=== PATIENT | female | born 1970 | race Caucasian/White ===

== ENCOUNTER 2016-12-17 23:51 | Emergency (ER) | payer OTHER ==
--- NOTE | 2016-12-18 06:03 | DIAGNOSTIC IMAGING REPORT ---
PROCEDURE: XR CHEST 2 VIEW INDICATION: CHEST PAIN TECHNIQUE: Portable AP view (0045 hours). COMPARISON: None. FINDINGS: Allowing for overlying wires and electrodes, lungs are clear. Heart and mediastinum are normal. Thorax is normal. IMPRESSION: 1. Negative chest.
--- NOTE | 2016-12-18 08:19 | ED NURSING NOTES ---
Clinical Report - Nurses [facility] [address] [place] [address] 12/17/2016 23:51 Patient: ANSELMO MORA TRIAGE Triage time 2355. Acuity: LEVEL 2. Chief Complaint: CHEST PAIN. Alert. --00:02 Anu Rodriguez 00:00 12/18/16. BP: 153/89. HR: 114. RR: 18. O2 saturation: 97%. Temp: 100.9 F. --00:02 Anu Rodriguez. Weight: 97.5 kg. Height/Length: 67 inches. BMI: 33.7. --23:59 Anu Rodriguez. Medications Wellbutrin Oral. --00: Anu Rodriguez Lomotil Oral. --00: Anu Rodriguez Thyroid Hormone. --00:01 Anu Rodriguez. Allergies Sulfa Antibiotics. --08:34 Cindy Perez R.N. History Arrived by private vehicle. Historian: patient. This started today. ( Pt feels she is having a reaction to newly started med, nausea, feels hot, skin burning, now chest tightness and feels panicky). Treatment RECONCILIATION MANAGER: None. SOCIAL HX: Never smoker. Occasional alcohol use. History of drug use: marijuana. --00:02 Anu Rodriguez. PROBLEMS: Bipolar Disorder. Hypertension. Thyroid Disease. Depression. --00: Anu Rodriguez. ADDITIONAL SURGERIES: Hysterectomy. Oblation. Tonsillectomy. Tubal Ligation. --00:01 Anu Rodriguez. Interventions To treatment room. --00:02 Anu Rodriguez. PHYSICAL ASSESSMENT Ambulatory to room. GENERAL / NEURO / PSYCH: Alert. Oriented X 4. Appears anxious and in distress. HEENT: Mucous membranes are pink. RESPIRATORY: Respirations not labored. Chest nontender. Breath sounds within normal limits. CVS: Cardiac rhythm: sinus tachycardia. Heart sounds within normal limits. Pulses within normal limits. Capillary refill less than 2 seconds. GI / : The patient has had nausea. Abdomen soft and nontender. EXTREMITIES: No lower extremity edema. SKIN: Skin is warm and dry. Normal skin turgor. Skin is non-tender. --00:14 Anu Rodriguez. NURSING PROGRESS NOTES 00:15 12/18/2016 Site #1 started via IV in the right wrist with an 22g angiocath, with aseptic technique and good blood return; one attempt. Blood drawn: rainbow set. Labeled in the presence of the patient and sent to the lab. Saline lock flushed with 10 mL saline. --00:15 Anu Rodriguez Patient gowned. Head of bed elevated. Reassurance given. Call light placed in reach. Side rails up x 1. Bed placed in lowest position. Brakes of bed on. Patient ready for evaluation- chart flagged and ED physician notified. --00:15 Anu Rodriguez EKG time: (0011 AM). EKG was ordered, performed by a tech and shown to the ED physician. --00:17 Yareli Dumas Monitoring of patient in place. --00:32 Anu Rodriguez 01:09 12/18/2016 Ativan (LORazepam) IVP 0.5 mg given. via site #1. Allergies verified, confirmed 5 rights and sedative warning given to the patient. IV patency established. IV site checked: no pain, redness, or swelling. IV flushed thoroughly pre- and post-medication administration. IVP given by RN. --01:09 Anu Rodriguez :57 12/18/2016 Ativan (LORazepam) IVP 0.5 mg given. via site #1. Allergies verified, confirmed 5 rights and sedative warning given to the patient. IV patency established. IV site checked: no pain, redness, or swelling. IV flushed thoroughly pre- and post-medication administration. IVP given by RN. --:57 Anu Rodriguez :57 12/18/2016 Benadryl (DiphenhydrAMINE HCl) IVP 25 mg given. via site #1. Allergies verified, confirmed 5 rights and sedative warning given to the patient. IV patency established. IV site checked: no pain, redness, or swelling. IV flushed thoroughly pre- and post-medication administration. IVP given by RN. --01:57 Anu Rodriguez 02:54 12/18/16. BP: 138/85. HR: 110. RR: 20. O2 saturation: 98%. --02:55 Anu Rodriguez Reassessment after medication administered. She is calm, resting quietly and sleeping and has had no adverse reaction. Overall patient status is improved- she states feels the same. ( "I'm still burning"). --02:55 Anu Rodriguez The patient reports headache (pt reports "I'm starting to get a migraine".). --04:10 Denise Flores R.N. 04:44 12/18/2016 Started bag #1 1000 mL IV Fluids IV NS (Saline); bolus of 1000 mL wide open via site #1. Allergies verified and confirmed 5 rights. IV patency established. IV site checked: no pain, redness, or swelling. IV flushed thoroughly pre- and post-medication administration. --04:44 Anu Rodriguez 04:45 12/18/2016 Tylenol (Acetaminophen) PO 975 mg given. Allergies verified and confirmed 5 rights. --04:45 Anu Rodriguez 04:45 12/18/16. BP: 116/65 taken while lying. HR: 115. --04:46 Anu Rodriguez 04:48 12/18/16. BP: 131/77 taken while standing. HR: 120. --04:49 Anu Rodriguez 06:09 12/18/2016 IV Fluids IV NS Discontinued: bag #1 infused. Total amount infused: 1000 mL. IV patency established. IV site checked: no pain, redness, or swelling. IV flushed thoroughly. --06:09 Anu Rodriguez Reassessment after intervention and medication administered. She is resting quietly and has had no adverse reaction. Overall patient status is the same- she states feels the same. --06:09 Anu Rodriguez 06:08 12/18/16. BP: 123/73. HR: 115. RR: 20. O2 saturation: 97%. Temp: 99.7 F. Pain level now 05/27. --06:09 Anu Rodriguez 07:37 12/18/16. The patient is calm and resting quietly. --07:37 Cindy Perez R.N. 07:37 12/18/16. BP: 101/61. HR: 103. RR: 18. O2 saturation: 97% on room air. --07:37 Cindy Perez R.N. 08:28 12/18/2016 Site #1 removed upon discharge. Catheter intact. Manual pressure and bandage applied. --08:33 Cindy Perez R.N. DISPOSITION / DISCHARGE Departure time: 08:Dec 18 2016. Condition at departure: improved and stable. No learning barriers present. Discharge instructions provided and reviewed with the patient. Patient verbalized understanding. Written instructions provided in Japanese. The patient was discharged by the physician. She was discharged home and accompanied by chemistry manager. She left the Emergency Department ambulatory and via private vehicle. Terrestrial Ecologist driving. --08:32 Cindy Perez R.N. 08:31 12/18/16. BP: 120/66. HR: 98. RR: 20. O2 saturation: 100% on room air. Temp: 99.5 F (oral). --08:32 Cindy Perez R.N. Locked/Released at 12/18/2016 8:34 by Cindy Perez R.N.
--- NOTE | 2016-12-18 08:19 | ED ORDER SUMMARY ---
..... Patient: ANSELMO MORA OrderSheet Located Within [facility] VisitID: [id number] [place] [address] 46y, F Registration Date/Time: 12/17/2016 ORDER SHEET Weight: 97.5 kg Allergies: Sulfa Antibiotics GENERAL ORDERS: CBC w Diff Urgent (00:03 12/18/2016 EBonham per protocol) (Ack 0:15 CHategekimana) (7:10 MWinterer R.N.) CMP Urgent (00:03 12/18/2016 EBonham per protocol) (Ack 0:16 CHategekimana) (7:10 MWinterer R.N.) Cardiac Panel Stat (00:03 12/18/2016 EBonham per protocol) (Ack 0:16 CHategekimana) (7:10 MWinterer R.N.) TSH Urgent (00:03 12/18/2016 EBonham per protocol) (Ack 0:16 CHategekimana) (7:10 MWinterer R.N.) EKG - ER Stat (00:03 12/18/2016 EBonham per protocol) (Ack 0:16 CHategekimana) (0:16 CHategekimana) Chest 2V Urgent (00:34 12/18/2016 Sesar BOWIE) (Ack 0:38 CHategekimana) (0:48 GUnger) UA-Culture if indicated Urgent (00:35 12/18/2016 Sesar BOWIE) (Ack 0:38 Maríaegekimana) (1:09 EBonham) Urine Drug Screen Urgent (00:35 12/18/2016 Sesar BOWIE) (Ack 0:38 Maríaegekimana) (1:09 EBonham) Urine Urgent (00:35 12/18/2016 Sesar BOWIE) (Cancelled: Other0:35 Sesar BOWIE) Rapid Influenza Screen (Nasal Pharyngeal) (swab) Urgent (04:34 12/18/2016 Sesar BOWIE) (4:44 EBonham) Troponin-I Urgent (07:28 12/18/2016 Sesar BOWIE) (Ack 7:35 LMuller) ([facility] MEDICATION ORDERS: Tylenol PO 975 mg (NOW) (04:34 12/18/2016 Sesar BOWIE) (4:45 EBonham) - (orthostatic BP/P) (04:34 12/18/2016 Sesar BOWIE) (Cancelled: [facility]4:50 [facility] IV FLUIDS: Ativan IV 0.5 mg (NOW) (00:34 12/18/2016 Sesar BOWIE) (Ack 0:44 [facility] (1:09 EBonham) Ativan IV 0.5 mg (NOW) (01:43 12/18/2016 Sesar BOWIE) (1:57 [facility] Benadryl IV 25 mg (NOW) (01:44 12/18/2016 Sesar BOWIE) (1:57 [facility] IV NS : initial bolus 1000 mL (1000 mL/hr), then none - for X1 (NOW); Routine (04:33 12/18/2016 Sesar BOWIE) (4:44 [facility] ORDER SHEET NOTES: [Electronically signed by Cindy Perez R.N. (08:34 12/18/2016)] [Electronically signed by Ron Culver MD (20:09 12/19/2016)] [Electronically locked/signed by Cindy Perez R.N. (08:34 12/18/2016)]
--- NOTE | 2016-12-18 08:19 | ED ORDER SUMMARY ---
..... Patient: ANSELMO MORA OrderSheet [facility] VisitID: [id number] [place] [address] 46y, F Registration Date/Time: 12/17/2016 ORDER SHEET Weight: 97.5 kg Allergies: Sulfa Antibiotics GENERAL ORDERS: CBC w Diff Urgent (00:03 12/18/2016 EBonham per protocol) (Ack 0:15 CHategekimana) (7:10 MWinterer R.N.) CMP Urgent (00:03 12/18/2016 EBonham per protocol) (Ack 0:16 CHategekimana) (7:10 MWinterer R.N.) Cardiac Panel Stat (00:03 12/18/2016 EBonham per protocol) (Ack 0:16 CHategekimana) (7:10 MWinterer R.N.) TSH Urgent (00:03 12/18/2016 EBonham per protocol) (Ack 0:16 CHategekimana) (7:10 MWinterer R.N.) EKG - ER Stat (00:03 12/18/2016 EBonham per protocol) (Ack 0:16 CHategekimana) (0:16 CHategekimana) Chest 2V Urgent (00:34 12/18/2016 Sesar BOWIE) (Ack 0:38 CHategekimana) (0:48 GUnger) UA-Culture if indicated Urgent (00:35 12/18/2016 Sesar BOWIE) (Ack 0:38 Maríaegekimana) (1:09 EBonham) Urine Drug Screen Urgent (00:35 12/18/2016 Sesar BOWIE) (Ack 0:38 Maríaegekimana) (1:09 EBonham) Urine Urgent (00:35 12/18/2016 Sesar BOWIE) (Cancelled: Other0:35 Sesar BOWIE) Rapid Influenza Screen (Nasal Pharyngeal) (swab) Urgent (04:34 12/18/2016 Sesar BOWIE) (4:44 EBonham) Troponin-I Urgent (07:28 12/18/2016 Sesar BOWIE) (Ack 7:35 LMuller) (8:14 [facility] MEDICATION ORDERS: Tylenol PO 975 mg (NOW) (04:34 12/18/2016 Sesar BOWIE) (4:45 EBonham) - (orthostatic BP/P) (04:34 12/18/2016 Sesar BOWIE) (Cancelled: Other4:50 [facility] IV FLUIDS: Ativan IV 0.5 mg (NOW) (00:34 12/18/2016 Sesar BOWIE) (Ack 0:44 [facility] (1:09 EBonham) Ativan IV 0.5 mg (NOW) (01:43 12/18/2016 Sesar BOWIE) (1:57 [facility] Benadryl IV 25 mg (NOW) (01:44 12/18/2016 Sesar BOWIE) (1:57 [facility] IV NS : initial bolus 1000 mL (1000 mL/hr), then none - for X1 (NOW); Routine (04:33 12/18/2016 Sesar BOWIE) (4:44 [facility] ORDER SHEET NOTES: [Electronically signed by Cindy Perez R.N. (08:34 12/18/2016)] [Electronically signed by Ron Culver MD (20:09 12/19/2016)] [Electronically locked/signed by Cindy Perez R.N. (08:34 12/18/2016)]
--- NOTE | 2016-12-18 08:19 | ED NURSING NOTES ---
Clinical Report - Nurses [facility] [address] [place] [address] 12/17/2016 23:51 Patient: ANSELMO MORA TRIAGE Triage time 2355. Acuity: LEVEL 2. Chief Complaint: CHEST PAIN. Alert. --00:02 Anu Rodriguez 00:00 12/18/16. BP: 153/89. HR: 114. RR: 18. O2 saturation: 97%. Temp: 100.9 F. --00:02 Anu Rodriguez. Weight: 97.5 kg. Height/Length: 67 inches. BMI: 33.7. --23:59 Anu Rodriguez. Medications Wellbutrin Oral. --00: Anu Rodriguez Lomotil Oral. --00: Anu Rodriguez Thyroid Hormone. --00:01 Anu Rodriguez. Allergies Sulfa Antibiotics. --08:34 Cindy ePrez R.N. History Arrived by private vehicle. Historian: patient. This started today. ( Pt feels she is having a reaction to newly started med, nausea, feels hot, skin burning, now chest tightness and feels panicky). Treatment WALL STEAMER: None. SOCIAL HX: Never smoker. Occasional alcohol use. History of drug use: marijuana. --00:02 Anu Rodriguez. PROBLEMS: Bipolar Disorder. Hypertension. Thyroid Disease. Depression. --00: Anu Rodriguez. ADDITIONAL SURGERIES: Hysterectomy. Oblation. Tonsillectomy. Tubal Ligation. --00:01 Anu Rodriguez. Interventions To treatment room. --00:02 Anu Rodriguez. PHYSICAL ASSESSMENT Ambulatory to room. GENERAL / NEURO / PSYCH: Alert. Oriented X 4. Appears anxious and in distress. HEENT: Mucous membranes are pink. RESPIRATORY: Respirations not labored. Chest nontender. Breath sounds within normal limits. CVS: Cardiac rhythm: sinus tachycardia. Heart sounds within normal limits. Pulses within normal limits. Capillary refill less than 2 seconds. GI / : The patient has had nausea. Abdomen soft and nontender. EXTREMITIES: No lower extremity edema. SKIN: Skin is warm and dry. Normal skin turgor. Skin is non-tender. --00:14 Anu Rodriguez. NURSING PROGRESS NOTES 00:15 12/18/2016 Site #1 started via IV in the right wrist with an 22g angiocath, with aseptic technique and good blood return; one attempt. Blood drawn: rainbow set. Labeled in the presence of the patient and sent to the lab. Saline lock flushed with 10 mL saline. --00:15 Anu Rodriguez Patient gowned. Head of bed elevated. Reassurance given. Call light placed in reach. Side rails up x 1. Bed placed in lowest position. Brakes of bed on. Patient ready for evaluation- chart flagged and ED physician notified. --00:15 Anu Rodriguez EKG time: (0011 AM). EKG was ordered, performed by a tech and shown to the ED physician. --00:17 Yareli Dumas Monitoring of patient in place. --00:32 Anu Rodriguez 01:09 12/18/2016 Ativan (LORazepam) IVP 0.5 mg given. via site #1. Allergies verified, confirmed 5 rights and sedative warning given to the patient. IV patency established. IV site checked: no pain, redness, or swelling. IV flushed thoroughly pre- and post-medication administration. IVP given by RN. --01:09 Anu Rodriguez :57 12/18/2016 Ativan (LORazepam) IVP 0.5 mg given. via site #1. Allergies verified, confirmed 5 rights and sedative warning given to the patient. IV patency established. IV site checked: no pain, redness, or swelling. IV flushed thoroughly pre- and post-medication administration. IVP given by RN. --:57 Anu Rodriguez :57 12/18/2016 Benadryl (DiphenhydrAMINE HCl) IVP 25 mg given. via site #1. Allergies verified, confirmed 5 rights and sedative warning given to the patient. IV patency established. IV site checked: no pain, redness, or swelling. IV flushed thoroughly pre- and post-medication administration. IVP given by RN. --01:57 Anu Rodriguez 02:54 12/18/16. BP: 138/85. HR: 110. RR: 20. O2 saturation: 98%. --02:55 Anu Rodriguez Reassessment after medication administered. She is calm, resting quietly and sleeping and has had no adverse reaction. Overall patient status is improved- she states feels the same. ( "I'm still burning"). --02:55 Anu Rodriguez The patient reports headache (pt reports "I'm starting to get a migraine".). --04:10 Denise Flores R.N. 04:44 12/18/2016 Started bag #1 1000 mL IV Fluids IV NS (Saline); bolus of 1000 mL wide open via site #1. Allergies verified and confirmed 5 rights. IV patency established. IV site checked: no pain, redness, or swelling. IV flushed thoroughly pre- and post-medication administration. --04:44 Anu Rodriguez 04:45 12/18/2016 Tylenol (Acetaminophen) PO 975 mg given. Allergies verified and confirmed 5 rights. --04:45 Anu Rodriguez 04:45 12/18/16. BP: 116/65 taken while lying. HR: 115. --04:46 Anu Rodriguez 04:48 12/18/16. BP: 131/77 taken while standing. HR: 120. --04:49 Anu Rodriguez 06:09 12/18/2016 IV Fluids IV NS Discontinued: bag #1 infused. Total amount infused: 1000 mL. IV patency established. IV site checked: no pain, redness, or swelling. IV flushed thoroughly. --06:09 Anu Rodriguez Reassessment after intervention and medication administered. She is resting quietly and has had no adverse reaction. Overall patient status is the same- she states feels the same. --06:09 Anu Rodriguez 06:08 12/18/16. BP: 123/73. HR: 115. RR: 20. O2 saturation: 97%. Temp: 99.7 F. Pain level now 05/27. --06:09 Anu Rodriguez 07:37 12/18/16. The patient is calm and resting quietly. --07:37 Cindy Perez R.N. 07:37 12/18/16. BP: 101/61. HR: 103. RR: 18. O2 saturation: 97% on room air. --07:37 Cindy Perez R.N. 08:28 12/18/2016 Site #1 removed upon discharge. Catheter intact. Manual pressure and bandage applied. --08:33 Cindy Perez R.N. DISPOSITION / DISCHARGE Departure time: 08:Dec 18 2016. Condition at departure: improved and stable. No learning barriers present. Discharge instructions provided and reviewed with the patient. Patient verbalized understanding. Written instructions provided in Armenian. The patient was discharged by the physician. She was discharged home and accompanied by back shoe cutter. She left the Emergency Department ambulatory and via private vehicle. Keyboard Operator driving. --08:32 Cindy Perez R.N. 08:31 12/18/16. BP: 120/66. HR: 98. RR: 20. O2 saturation: 100% on room air. Temp: 99.5 F (oral). --08:32 Cindy Perez R.N. Locked/Released at 12/18/2016 8:34 by Cindy Perez R.N.
--- NOTE | 2016-12-18 08:19 | ED CLINICAL REPORT ---
Clinical Report - Physicians/Mid Levels [facility] [address] [place] [address] 12/17/2016 23:51 Patient: ANSELMO MORA Time Seen: 00:02 Dec 18 2016. Arrived- By private vehicle. Historian- patient. CPT: ER phys charges level 4 plus (#[id number]). EKG interpretation (#[id number]). HISTORY OF PRESENT ILLNESS Chief Complaint: CHEST PAIN. It is described as tightness and it is described as located in the central chest area. This started yesterday Pt feels she is having a reaction to newly started med, nausea, feels hot, skin burning, now chest tightness and feels panicky). and is still present. Onset during light activity. The patient has had nausea. No vomiting, difficulty breathing or diaphoresis. (Skin feels hot. NO pruritus.). (Just started lamotragine 2 weeks ago.). Similar symptoms previously: None. Recent medical care: Not recently seen/assessed. REVIEW OF SYSTEMS No fever, chills, cough, pedal edema or calf pain. No fainting episodes, sore throat, abdominal pain, black stools or difficulty with urination. No skin rash, enlarged lymph nodes or joint pain. Lips tingling. All systems otherwise negative, except as recorded above. PAST HISTORY Bipolar Disorder. Hypertension. Thyroid Disease. Depression. Hysterectomy. Oblation. Tonsillectomy. Tubal Ligation. Medications: Thyroid Hormone. Lomotil Oral. Wellbutrin Oral. Allergies: Sulfa Antibiotics. SOCIAL HISTORY Never smoker. Occasional alcohol use. History of occasional drug use: marijuana. ADDITIONAL NOTES The nursing notes have been reviewed. PHYSICAL EXAM Vital Signs: 12/18/2016 00:00 BP: 153/89. HR: 114. RR: 18. O2 saturation: 97%. Temp: 100.9 F. Appearance: Alert. No acute distress. Eyes: Eyes normal inspection. ENT: Pharynx normal. Neck: Normal inspection. Neck supple. CVS: Normal heart rate and rhythm. Heart sounds normal. Pulses normal. Respiratory: No respiratory distress. Breath sounds normal. Chest nontender. No wheezes. Abdomen: Soft and nontender. Back: Normal external inspection. Skin: Skin warm. Normal skin color. No rash. Extremities: Extremities exhibit normal ROM. No lower extremity edema. Neuro: Oriented X 3. No motor deficit. No sensory deficit. LABS, X-RAYS, AND EKG EKG: Normal EKG. Chest X-ray: Normal Chest X-Ray. Laboratory Tests: UA-Culture if indicated: (DELICIA: 12/18/2016 01:08) ( [facility] 12/18/2016 01:21) Final results Test Result Flag Units (Reference) URINE COLOR YELLOW URINE APPEARANCE CLEAR URINE GLUCOSE NEGATIVE (NEGATIVE) URINE BILIRUBIN NEGATIVE (NEGATIVE) URINE KETONE TRACE (NEGATIVE) URINE SPECIFIC GRAVITY 1.025 (1.010-1.030) URINE PH 6.5 (5.0-8.0) URINE PROTEIN 1+ (NEGATIVE) URINE UROBILINOGEN 0.2 EU/dL (0.2-1.0) URINE NITRITE NEGATIVE (NEGATIVE) URINE BLOOD NEGATIVE (NEGATIVE) URINE LEUK ESTERASE NEGATIVE (NEGATIVE) URINE RBC 0-1 rbc/hpf (0-1) URINE WBC 0-1 wbc/hpf (0-1) URINE EPITHELIAL CELLS 1-3 EPI/hpf (0-5) URINE BACTERIA NONE SEEN (NONE SEEN) URINE COMMENT CULT NOT INDICATED 1+ AMORPHOUS1+ MUCUSURINE CULTURES ARE SET-UP BASED ON THE FOLLOWING CRITERIA:POSITIVE NITRITEPOSITIVE LEUKOCYTE ESTERASEGREATER THAN 10 WHITE BLOOD CELLSMODERATE (2+) OR GREATER BACTERIA CBC w Diff: (DELICIA: 12/18/2016 00:10) ( [facility] 12/18/2016 00:22) Final results Test Result Flag Units (Reference) WHITE BLOOD COUNT 3.9 L K/uL (4.5-11.5) RED BLOOD COUNT 4.29 M/uL (4.00-5.20) HEMOGLOBIN 12.8 gm/dL (12.0-16.0) HEMATOCRIT 37.7 % (36.0-46.0) MEAN CELL VOLUME 88 fL (80-100) MEAN CORPUSCULAR HGB 30 pg (26-34) MEAN CORPUSCULAR HGB CONC 34 g/dL (31-37) RED CELL DISTRIBUTION WIDTH 13.6 % (11.6-14.8) PLATELET COUNT 113 L K/uL (150-400) NEUTROPHIL % 84.2 H % (50-75) LYMPH % 10.7 L % (25-40) MONO % 3.1 % (3-14) EOSINOPHIL % 2.0 % (0-4) BASOPHIL % 0 % (0-2) Urine Drug Screen: (DELICIA: 12/18/2016 01:08) ( MsgRcvd 12/18/2016 01:33) Final results Test Result Flag Units (Reference) AMPHETAMINE/METHAMPHETAMINE NEGATIVE (NEGATIVE) BARBITURATE NEGATIVE (NEGATIVE) BENZODIAZEPINE NEGATIVE (NEGATIVE) CANNABINOID POSITIVE H (NEGATIVE) COCAINE NEGATIVE (NEGATIVE) ECSTASY POSITIVE H (NEGATIVE) METHADONE NEGATIVE (NEGATIVE) OPIATE NEGATIVE (NEGATIVE) The urine drug screen is a qualitative screening test fordrug overdose and abuse. All screen results should beconsidered as presumptive.Drugs screened for are as follows:BenzodiazepinesCocaineAmphetamines/MetamphetaminesTHC (Tetrahydrocannabinol)OpiatesBarbituratesEcstasyMethadonePositive results are unconfirmed. For confirmation, notifythe lab for the specimen to be sent to the reference lab.All confirmations must be performed by a differentmethodology.The ingestion of natural herbal and plant productscontaining Ephedra/Ephedra metabolites can produce in urineone or more substances capable of cross reacting withamphetamine/methamphetamine immunoassays. These testsprovide a preliminary result only. A more specificalternative chemical method must be used to obtain aconfirmed analytical result. CHEM 13 PANEL: (DELICIA: 12/18/2016 00:10) ( MsgRcvd 12/18/2016 00:40) Final results Test Result Flag Units (Reference) GLUCOSE 116 H mg/dL (70-110) BUN 10 mg/dL (7-18) CREATININE 0.8 mg/dL (0.6-1.3) Estimated GFR >60 mL/min Estimated GFR- >60 mL/min Note: Persistent reduction over 3 months in eGFR<60 mL/min/1.73 m2 defines CKD. Patients with eGFR values>=60 mL/min/1.73 m2 may also have CKD if evidence ofpersistent proteinuria. Additional information may be foundat www.kidney.org. SODIUM 141 mmol/L (136-145) POTASSIUM 3.6 mmol/L (3.5-5.1) CHLORIDE 106 mmol/L (98-107) CARBON DIOXIDE 25 mmol/L (21-32) CALCIUM 8.0 L mg/dL (8.5-10.1) TOTAL PROTEIN 6.9 g/dL (6.4-8.2) ALBUMIN 3.3 g/dL (3.3-5.0) BILIRUBIN, TOTAL 0.4 mg/dL (0.0-1.0) ALKALINE PHOSPHATASE 77 U/L (46-116) AST (SGOT) 121 H U/L (15-37) ALT (SGPT) 75 U/L (12-78) CPK 54 U/L (24-260) MAGNESIUM 1.8 mg/dL (1.8-2.4) TROPONIN I <0.05 L ng/mL (0.00-1.5) TROPONIN REFERENCE RANGE:<0.1 NEGATIVE0.1-1.5 INDETERMINANT>1.5 POSITIVE THYROID STIMULATING HORMONE 0.376 uIU/mL (0.34-3.74) . PROGRESS AND PROCEDURES Course of Care: Ativan 0.5 mg IV 01:44 12/18/16. not much change in symptoms after the first dose of Ativan. We'll try 0.5 mg Ativan IV and benadryl 25 mg IV. Patient is stable. Pt with low grade fever of unclear etiology. Pt given IV NS. Patient/family counseled. Disposition: Discharged. Condition: stable. CLINICAL IMPRESSION Side effects to lamotrigine Low grade fever Mild dehydration. Sinus tachycardia. INSTRUCTIONS Do not work today, for one day until better. (Call Doctor today to discuss lamotrigine). Warnings: Further evaluation is necessary. GENERAL WARNINGS: Return or contact your physician immediately if your condition worsens or changes unexpectedly, if not improving as expected, or if other problems arise. Your Current Medications: CONTINUE TAKING THE FOLLOWING MEDICATIONS: Lomotil Oral. Thyroid Hormone*. Wellbutrin Oral. Follow-up: Follow up with your doctor in two days. Call for an appointment. Understanding of the discharge instructions verbalized by patient. (Electronically signed by Ron Culver MD 12/19/2016 20:09)
--- NOTE | 2016-12-19 20:10 | ED DISCHARGE INSTRUCTIONS ---
Patient: ANSELMO MORA General Instructions [facility] VisitID: [id number] [address] [place] [address] 46y, F Registration Date/Time: 12/17/2016 Side effects to lamotrigine Low grade fever Mild dehydration. Sinus tachycardia. INSTRUCTIONS Do not work today, for one day until better. (Call Doctor today to discuss lamotrigine). Warnings: Further evaluation is necessary. GENERAL WARNINGS: Return or contact your physician immediately if your condition worsens or changes unexpectedly, if not improving as expected, or if other problems arise. Your Current Medications: CONTINUE TAKING THE FOLLOWING MEDICATIONS: Lomotil Oral. Thyroid Hormone*. Wellbutrin Oral. Follow-up: Follow up with your doctor in two days. Call for an appointment. Understanding of the discharge instructions verbalized by patient. Do not work today, for one day until better. (Electronically signed by Ron Culver MD 12/19/2016 20:09)
--- NOTE | 2016-12-19 20:10 | ED MED RECONCILIATION SUMMARY ---
Patient: ANSELMO MORA Medication Reconciliation Report [facility] VisitID: [id number] [address] [place] [address] 46y, F Registration Date/Time: 12/17/2016 Weight: 97.5 kg Height/Length: 67 in. BMI: 33.7 ALLERGIES: Sulfa Antibiotics The patient's Home Medications are listed below: CONTINUE TAKING THE FOLLOWING MEDICATIONS: Lomotil Oral Thyroid Hormone Wellbutrin Oral The source(s) of the original Home Medication information: Not obtained. The following Medications were given to the patient in the Emergency Department: Ativan [IVP] IVP 0.5 mg, administered: 12/18/2016 1:09:00 AM Ativan [IVP] IVP 0.5 mg, administered: 12/18/2016 1:57:00 AM Benadryl [IVP] IVP 25 mg, administered: 12/18/2016 1:57:00 AM IV NS IV Fluids bolus 1000 mL wide open, administered: 12/18/2016 4:44:00 AM Tylenol [PO] PO 975 mg, administered: 12/18/2016 4:45:00 AM The following Medications were prescribed to the patient: None.
--- NOTE | 2016-12-19 20:10 | ED MED RECONCILIATION SUMMARY ---
Patient: ANSELMO MORA Medication Reconciliation Report [facility] VisitID: [id number] [address] [place] [address] 46y, F Registration Date/Time: 12/17/2016 Weight: 97.5 kg Height/Length: 67 in. BMI: 33.7 ALLERGIES: Sulfa Antibiotics The patient's Home Medications are listed below: CONTINUE TAKING THE FOLLOWING MEDICATIONS: Lomotil Oral Thyroid Hormone Wellbutrin Oral The source(s) of the original Home Medication information: Not obtained. The following Medications were given to the patient in the Emergency Department: Ativan [IVP] IVP 0.5 mg, administered: 12/18/2016 1:09:00 AM Ativan [IVP] IVP 0.5 mg, administered: 12/18/2016 1:57:00 AM Benadryl [IVP] IVP 25 mg, administered: 12/18/2016 1:57:00 AM IV NS IV Fluids bolus 1000 mL wide open, administered: 12/18/2016 4:44:00 AM Tylenol [PO] PO 975 mg, administered: 12/18/2016 4:45:00 AM The following Medications were prescribed to the patient: None.
--- NOTE | 2016-12-19 20:10 | ED MAR SUMMARY ---
..... Medication Administration Record [facility] [address] [place] [place] [address] Patient: ANSELMO MORA Visit ID: [id number] 46y, F Weight: 97.5 kg Height/Length: 67 in BMI: 33.7 ALLERGIES: Sulfa Antibiotics Given 01:09 12/18/2016 Anu Rodriguez, Medication Administered: ATIVAN [IVP] (LORAZEPAM), Dose: 0.5 mg IVP, Site: #1 right wrist. Medication Ordered: Ativan IV 0.5 mg (NOW). Given 01:57 12/18/2016 Anu Rodriguez, Medication Administered: ATIVAN [IVP] (LORAZEPAM), Dose: 0.5 mg IVP, Site: #1 right wrist. Medication Ordered: Ativan IV 0.5 mg (NOW). Given 01:57 12/18/2016 Anu Rodriguez, Medication Administered: BENADRYL [IVP] (DIPHENHYDRAMINE HCL), Dose: 25 mg IVP, Site: #1 right wrist. Medication Ordered: Benadryl IV 25 mg (NOW). Start 04:44 12/18/2016 Anu Rodriguez,, Stop 06:09 12/18/2016 Anu Rodriguez, Medication Administered: IV NS (SALINE), Dose: IV Fluids, Bolus: 1000 mL wide open, Dispensed: 1000 mL bag, Site: #1 right wrist. Medication Ordered: IV NS : initial bolus 1000 mL (1000 mL/hr), then none - for X1 (NOW); Routine. Given 04:45 12/18/2016 Anu Rodriguez, Medication Administered: TYLENOL [PO] (ACETAMINOPHEN), Dose: 975 mg PO. Medication Ordered: Tylenol PO 975 mg (NOW).
--- NOTE | 2016-12-19 20:10 | ED MAR SUMMARY ---
..... Medication Administration Record [facility] [address] [place] [place] [address] Patient: ANSELMO MORA Visit ID: [id number] 46y, F Weight: 97.5 kg Height/Length: 67 in BMI: 33.7 ALLERGIES: Sulfa Antibiotics Given 01:09 12/18/2016 Anu Rodriguez, Medication Administered: ATIVAN [IVP] (LORAZEPAM), Dose: 0.5 mg IVP, Site: #1 right wrist. Medication Ordered: Ativan IV 0.5 mg (NOW). Given 01:57 12/18/2016 Anu Rodriguez, Medication Administered: ATIVAN [IVP] (LORAZEPAM), Dose: 0.5 mg IVP, Site: #1 right wrist. Medication Ordered: Ativan IV 0.5 mg (NOW). Given 01:57 12/18/2016 Anu Rodriguez, Medication Administered: BENADRYL [IVP] (DIPHENHYDRAMINE HCL), Dose: 25 mg IVP, Site: #1 right wrist. Medication Ordered: Benadryl IV 25 mg (NOW). Start 04:44 12/18/2016 Anu Rodriguez,, Stop 06:09 12/18/2016 Anu Rodriguez, Medication Administered: IV NS (SALINE), Dose: IV Fluids, Bolus: 1000 mL wide open, Dispensed: 1000 mL bag, Site: #1 right wrist. Medication Ordered: IV NS : initial bolus 1000 mL (1000 mL/hr), then none - for X1 (NOW); Routine. Given 04:45 12/18/2016 Anu Rodriguez, Medication Administered: TYLENOL [PO] (ACETAMINOPHEN), Dose: 975 mg PO. Medication Ordered: Tylenol PO 975 mg (NOW).
--- NOTE | 2016-12-19 20:10 | ED DISCHARGE INSTRUCTIONS ---
Patient: ANSELMO MORA General Instructions [facility] VisitID: [id number] [address] [place] [address] 46y, F Registration Date/Time: 12/17/2016 Side effects to lamotrigine Low grade fever Mild dehydration. Sinus tachycardia. INSTRUCTIONS Do not work today, for one day until better. (Call Doctor today to discuss lamotrigine). Warnings: Further evaluation is necessary. GENERAL WARNINGS: Return or contact your physician immediately if your condition worsens or changes unexpectedly, if not improving as expected, or if other problems arise. Your Current Medications: CONTINUE TAKING THE FOLLOWING MEDICATIONS: Lomotil Oral. Thyroid Hormone*. Wellbutrin Oral. Follow-up: Follow up with your doctor in two days. Call for an appointment. Understanding of the discharge instructions verbalized by patient. Do not work today, for one day until better. (Electronically signed by Ron Culver MD 12/19/2016 20:09)
== END 2016-12-18 08:30 | disposition home or self-care (01) ==
LOC: ED SRH 23:51
DX: R00.0 Tachycardia, unspecified (principal); T42.6X5A Adverse effect of other antiepileptic and sedative-hypnotic drugs, initial encounter; E86.0 Dehydration; R50.9 Fever, unspecified; I10 Essential (primary) hypertension; E07.9 Disorder of thyroid, unspecified; Z88.2 Allergy status to sulfonamides; Z79.899 Other long term (current) drug therapy
CPT/HCPCS: 90004; 90074; 90100; 90616; 91400; 92610; 92720; 92760; 92761; 92762; 92763; 92764; 92765; 92766; 92767; 93140; 95059

== ENCOUNTER 2016-12-22 20:08 | Emergency (ER) | payer OTHER ==
--- NOTE | 2016-12-22 21:41 | ED NURSING NOTES ---
Clinical Report - Nurses [facility] [address] [place] [address] 12/22/2016 20:08 Patient: ANSELMO MORA TRIAGE Triage time 2014. Acuity: LEVEL 3. Chief Complaint: MIGRAINE HEADACHE and (has had since , was seen here and at [facility] at least 1x/day since then). --20:24 Raya Salgado R.N. 20:15 12/22/16. BP: 170/112. HR: 82. RR: 22. O2 saturation: 100%. Temp: 98.1 F. Pain level now: 08/27. --20:24 Raya Salgado R.N. Weight: 97.5 kg measured. Height/Length: 67 inches Measured. BMI: 33.7. --20:23 Raya Salgado R.N. Medications Lomotil Oral. Thyroid Hormone. Wellbutrin Oral. --20:21 Raya Salgado R.N. zofran 4mg last dose 1500. --20:22 Raya Salgado R.N. Allergies Sulfa Antibiotics. --20:21 Raya Salgado R.N. Lamictal.(rash) --20:21 Raya Salgado R.N. History Arrived by private vehicle. Historian: patient. Accompanied by family. No primary care physician. This started . She has had nausea and vomiting. SOCIAL HX: Never smoker. Occasional alcohol use. --20:24 Raya Salgado R.N. ( Intractable vomiting 2nd to migranes). --20:26 Raya Salgado R.N. PROBLEMS: Bipolar Disorder. Abdominal Injury. Chest Pain. Hypertension. Thyroid Disease. Depression. --20:23 Raya Salgado R.N. Migraine Headache [RuleOut]. --20:23 Raya Salgado R.N. ADDITIONAL SURGERIES: Hysterectomy. Oblation. Tonsillectomy. Tubal Ligation. --20:23 Raya Salgado R.N. Interventions ID band on patient. To treatment room. --20:24 Raya Salgado R.N. PHYSICAL ASSESSMENT 20:34 12/22/16. Ambulatory to room. GENERAL / NEURO / PSYCH: Alert. Oriented X 4. Speech within normal limits. HEENT: No facial asymmetry noted. Pupils equal, round and reactive to light. RESPIRATORY: Breath sounds within normal limits. CVS: Capillary refill less than 2 seconds. SKIN: Skin is warm and dry. --20:34 Anu Olivier R.N. NURSING PROGRESS NOTES 20:20 12/22/2016 Zofran ODT (Ondansetron) PO Oral Disintegrating Tablets 4 mg given. --20:25 Raya Salgado R.N. 20:25. Patient gowned. Head of bed elevated. Reassurance given. Lights dimmed. Patient identifiers checked. Call light placed in reach. Side rails up. Bed placed in lowest position. Patient ready for evaluation- chart flagged. Care transferred and report given (Zackary Leary, EDRN). --20:31 Raya Salgado R.N. 20:31 12/22/2016 Zofran ODT PO Response: (pt vomited less than 5 min after taking pill). --20:31 Raya Salgado R.N. 20:40 12/22/16. ( MD at bedside). --20:40 Anu Olivier R.N. 20:50 12/22/2016 Ativan (LORazepam) IM 1 mg given. Given in the right gluteus itz. Allergies verified, confirmed 5 rights and sedative warning given to the patient. --20:52 Anu Olivier R.N. 20:50 12/22/2016 Dilaudid (HYDROmorphone HCl PF) IM 1 mg given. Given in the right gluteus itz. Allergies verified, confirmed 5 rights and sedative warning given to the patient. --20:53 Anu Olivier R.N. 20:50 12/22/2016 Phenergan (Promethazine HCl) IM 25 mg given. Given in the right gluteus itz. Allergies verified, confirmed 5 rights and sedative warning given to the patient. --20:53 Anu Olivier R.N. 21:20 12/22/16. The patient has had no adverse reaction. Overall patient status is improved- she states feels better. GENERAL / NEURO / PSYCH: The patient reports headache is still present but improving. GI / : The patient reports nausea is still present but improving. --21:58 Anu Olivier R.N. 21:20 12/22/16. BP: 159/91. HR: 73. RR: 18. O2 saturation: 99%. Temp: 98.5 F. Pain level now 03/27. --21:58 Anu Olivier R.N. DISPOSITION / DISCHARGE 21:40 12/22/16. Departure time: 21:40 Dec 22 2016. Condition at departure: improved and stable. The goals identified in the patient's plan of care were met. No learning barriers present. Reviewed medication(s) side effects, precautions, dosing and course information. Prescription(s) given to the patient. Reviewed referral to a primary care physician for followup. Summary of care provided to patient. The patient was discharged home and accompanied by spouse. She left the Emergency Department ambulatory and via private vehicle. Spouse driving. --21:59 Anu Olivier R.N. 21:58 12/22/16. BP: 159/91. HR: 73. RR: 18. O2 saturation: 99%. Temp: 98.5 F. Pain level now 03/27. 20:15 12/22/16. BP: 170/112. HR: 82. RR: 22. O2 saturation: 100%. Temp: 98.1 F. Pain level now: 08/27. --21:59 Anu Olivier R.N. Locked/Released at 12/22/2016 22:00 by Anu Olivier R.N.
--- NOTE | 2016-12-22 21:41 | ED CLINICAL REPORT ---
Clinical Report - Physicians/Mid Levels [facility] [address] [place] [address] 12/22/2016 20:08 Patient: ANSELMO MORA Time Seen: 20:36 Dec 22 2016. Arrived- By private vehicle. Historian- patient. CPT: ER phys charges level 4 (#[id number]). HISTORY OF PRESENT ILLNESS Is still present. Chief Complaint: HEADACHE. This started about 1 weeks [employer] HEAD. Onset during light activity. It is described as "pain". Described as a global headache. At its maximum, severity described as moderate. When seen in the E.D., severity described as moderate. Modifying factors: (pt feels it is to the new lamictal she started over a week ago. She has been off it now for 5 days.). The patient has had nausea. She has had moderate vomiting (due to LI). The vomiting has occurred several times. No photophobia, numbness or weakness. Similar symptoms previously: None. Recent medical care: The patient was seen recently at another facility (Every day for the past 5 days.). Evaluation/treatment: head CT and medication prescribed- lumbar puncture. Diagnosis: headache. REVIEW OF SYSTEMS No fever, muscle aches, sinus pressure, ear pain or sore throat. No head injury, chest pain, difficulty breathing, cough or abdominal pain. No diarrhea, pain with urination, skin rash, enlarged lymph nodes or back pain. All systems otherwise negative, except as recorded above. PAST HISTORY Bipolar Disorder. Hypertension. Thyroid Disease. Depression. Hysterectomy. Oblation. Tonsillectomy. Tubal Ligation. Medications: zofran 4mg last dose 1500. Lomotil Oral. Thyroid Hormone. Wellbutrin Oral. Allergies: Lamictal.(rash) Sulfa Antibiotics. SOCIAL HISTORY Never smoker. Occasional alcohol use. No drug use. ADDITIONAL NOTES The nursing notes have been reviewed. PHYSICAL EXAM Vital Signs: 12/22/2016 20:15 BP: 170/112. HR: 82. RR: 22. O2 saturation: 100%. Temp: 98.1 F. Pain level now: 08/27. Appearance: Alert. Anxious. Patient in mild distress. Eyes: Pupils equal, round and reactive to light. Eyes normal inspection. ENT: Ears normal. Nose normal. Pharynx normal. Neck: Normal inspection. Neck supple. No meningeal signs. CVS: Normal heart rate and rhythm. Heart sounds normal. Pulses normal. Respiratory: No respiratory distress. Breath sounds normal. Abdomen: Soft and nontender. Back: Normal inspection. Skin: Skin warm. Normal skin color. No rash. Extremities: Extremities exhibit normal ROM. No lower extremity edema. Neuro: Oriented X 3. Alert. Mood/affect normal. Speech normal. Cranial nerves normal (as tested). No cerebellar findings. No motor deficit. No sensory deficit. Reflexes normal. PROGRESS AND PROCEDURES Course of Care: 20:54 12/22/16. patient has been in the ER or the office every day since last Saturday with headache. [place] to be a reaction to Lamictal. This was a new drug that was started the week prior. Patient was seen at the [facility] and had a LP CT of head and lab work. All of that was negative. Patient states she is given shots for the pain and then sent home but hasn't had any home medications for this headache. Zofran 4 mg po ODT Dilaudid 1 mg IM Ativan 1 mg IM Phenergan 25 mg IM Patient is stable. Symptoms better. Patient/family counseled. Disposition: Discharged. Condition: stable and improved. CLINICAL IMPRESSION Recurrent LI after lamictal medication change. INSTRUCTIONS Drink plenty of fluids. Warnings: Further evaluation is necessary. SEDATIVE MEDICATION: You were given sedative medication during your visit. Do not drive or operate dangerous machinery. GENERAL WARNINGS: Return or contact your physician immediately if your condition worsens or changes unexpectedly, if not improving as expected, or if other problems arise. Your Current Medications: CONTINUE TAKING THE FOLLOWING MEDICATIONS: Lomotil Oral. Thyroid Hormone*. Wellbutrin Oral. zofran 4mg last dose 1500*. Prescription Medications: Soma 350 mg: Take 1 orally every 6 hours as needed for muscle spasm. Dispense twenty (20). No refills. Substitution is permissible. Oxycodone/APAP 5 mg/325 mg: take 1-2 tablets orally every 6 hours. Dispense twelve (12). No refill. Phenergan suppositories 25 mg: Insert 1 rectally every 4 to 6 hours as needed for nausea or vomiting. Dispense ten (10). No refills. Substitution is permissible. Follow-up: Follow up with your doctor Saturday in two days. Call for the next available appointment. Understanding of the discharge instructions verbalized by patient and family. (Electronically signed by Ron Culver MD 12/26/2016 7:45)
--- NOTE | 2016-12-22 21:41 | ED CLINICAL REPORT ---
Clinical Report - Physicians/Mid Levels [facility] [address] [place] [address] 12/22/2016 20:08 Patient: ANSELMO MORA Time Seen: 20:36 Dec 22 2016. Arrived- By private vehicle. Historian- patient. CPT: ER phys charges level 4 (#[id number]). HISTORY OF PRESENT ILLNESS Is still present. Chief Complaint: HEADACHE. This started about 1 weeks [employer]. Onset during light activity. It is described as "pain". Described as a global headache. At its maximum, severity described as moderate. When seen in the E.D., severity described as moderate. Modifying factors: (pt feels it is to the new lamictal she started over a week ago. She has been off it now for 5 days.). The patient has had nausea. She has had moderate vomiting (due to LI). The vomiting has occurred several times. No photophobia, numbness or weakness. Similar symptoms previously: None. Recent medical care: The patient was seen recently at another facility (Every day for the past 5 days.). Evaluation/treatment: head CT and medication prescribed- lumbar puncture. Diagnosis: headache. REVIEW OF SYSTEMS No fever, muscle aches, sinus pressure, ear pain or sore throat. No head injury, chest pain, difficulty breathing, cough or abdominal pain. No diarrhea, pain with urination, skin rash, enlarged lymph nodes or back pain. All systems otherwise negative, except as recorded above. PAST HISTORY Bipolar Disorder. Hypertension. Thyroid Disease. Depression. Hysterectomy. Oblation. Tonsillectomy. Tubal Ligation. Medications: zofran 4mg last dose 1500. Lomotil Oral. Thyroid Hormone. Wellbutrin Oral. Allergies: Lamictal.(rash) Sulfa Antibiotics. SOCIAL HISTORY Never smoker. Occasional alcohol use. No drug use. ADDITIONAL NOTES The nursing notes have been reviewed. PHYSICAL EXAM Vital Signs: 12/22/2016 20:15 BP: 170/112. HR: 82. RR: 22. O2 saturation: 100%. Temp: 98.1 F. Pain level now: 08/27. Appearance: Alert. Anxious. Patient in mild distress. Eyes: Pupils equal, round and reactive to light. Eyes normal inspection. ENT: Ears normal. Nose normal. Pharynx normal. Neck: Normal inspection. Neck supple. No meningeal signs. CVS: Normal heart rate and rhythm. Heart sounds normal. Pulses normal. Respiratory: No respiratory distress. Breath sounds normal. Abdomen: Soft and nontender. Back: Normal inspection. Skin: Skin warm. Normal skin color. No rash. Extremities: Extremities exhibit normal ROM. No lower extremity edema. Neuro: Oriented X 3. Alert. Mood/affect normal. Speech normal. Cranial nerves normal (as tested). No cerebellar findings. No motor deficit. No sensory deficit. Reflexes normal. PROGRESS AND PROCEDURES Course of Care: 20:54 12/22/16. patient has been in the ER or the office every day since last Saturday with headache. [place] to be a reaction to Lamictal. This was a new drug that was started the week prior. Patient was seen at the [facility] and had a LP CT of head and lab work. All of that was negative. Patient states she is given shots for the pain and then sent home but hasn't had any home medications for this headache. Zofran 4 mg po ODT Dilaudid 1 mg IM Ativan 1 mg IM Phenergan 25 mg IM Patient is stable. Symptoms better. Patient/family counseled. Disposition: Discharged. Condition: stable and improved. CLINICAL IMPRESSION Recurrent LI after lamictal medication change. INSTRUCTIONS Drink plenty of fluids. Warnings: Further evaluation is necessary. SEDATIVE MEDICATION: You were given sedative medication during your visit. Do not drive or operate dangerous machinery. GENERAL WARNINGS: Return or contact your physician immediately if your condition worsens or changes unexpectedly, if not improving as expected, or if other problems arise. Your Current Medications: CONTINUE TAKING THE FOLLOWING MEDICATIONS: Lomotil Oral. Thyroid Hormone*. Wellbutrin Oral. zofran 4mg last dose 1500*. Prescription Medications: Soma 350 mg: Take 1 orally every 6 hours as needed for muscle spasm. Dispense twenty (20). No refills. Substitution is permissible. Oxycodone/APAP 5 mg/325 mg: take 1-2 tablets orally every 6 hours. Dispense twelve (12). No refill. Phenergan suppositories 25 mg: Insert 1 rectally every 4 to 6 hours as needed for nausea or vomiting. Dispense ten (10). No refills. Substitution is permissible. Follow-up: Follow up with your doctor Saturday in two days. Call for the next available appointment. Understanding of the discharge instructions verbalized by patient and family. (Electronically signed by Ron Culver MD 12/26/2016 7:45)
--- NOTE | 2016-12-22 21:41 | ED ORDER SUMMARY ---
..... Patient: ANSELMO MORA OrderSheet [facility] VisitID: [id number] [address] [place] [address] 46y, F Registration Date/Time: 12/22/2016 ORDER SHEET Weight: 97.5 kg (measured) Allergies: Sulfa Antibiotics, Lamictal GENERAL ORDERS: MEDICATION ORDERS: Zofran ODT PO 4 mg (NOW) (20:25 12/22/2016 DDean R.N. per protocol) (20:25 DDean R.N.) Ativan IM 1 mg (NOW) (20:45 12/22/2016 Sesar BOWIE) (20:52 EInderbitzen R.N.) Dilaudid IM 1 mg (NOW) (20:45 12/22/2016 Sesar BOWIE) (20:53 EInderbitzen R.N.) Phenergan IM 25 mg (NOW) (20:45 12/22/2016 Sesar BOWIE) (20:53 EInderbitzen R.N.) IV FLUIDS: ORDER SHEET NOTES: [Electronically signed by Anu Olivier R.N. (22:00 12/22/2016)] [Electronically signed by Ron Culver MD (07:45 12/26/2016)] [Electronically locked/signed by Anu Olivier R.N. (22:00 12/22/2016)]
--- NOTE | 2016-12-22 21:41 | ED ORDER SUMMARY ---
..... Patient: ANSELMO MORA OrderSheet [facility] VisitID: [id number] [address] [place] [address] 46y, F Registration Date/Time: 12/22/2016 ORDER SHEET Weight: 97.5 kg (measured) Allergies: Sulfa Antibiotics, Lamictal GENERAL ORDERS: MEDICATION ORDERS: Zofran ODT PO 4 mg (NOW) (20:25 12/22/2016 DDean R.N. per protocol) (20:25 DDean R.N.) Ativan IM 1 mg (NOW) (20:45 12/22/2016 Sesar BOWIE) (20:52 EInderbitzen R.N.) Dilaudid IM 1 mg (NOW) (20:45 12/22/2016 Sesar BOWIE) (20:53 EInderbitzen R.N.) Phenergan IM 25 mg (NOW) (20:45 12/22/2016 Sesar BOWIE) (20:53 EInderbitzen R.N.) IV FLUIDS: ORDER SHEET NOTES: [Electronically signed by Anu Olivier R.N. (22:00 12/22/2016)] [Electronically signed by Ron Culver MD (07:45 12/26/2016)] [Electronically locked/signed by Anu Olivier R.N. (22:00 12/22/2016)]
--- NOTE | 2016-12-26 07:46 | ED DISCHARGE INSTRUCTIONS ---
Patient: ANSELMO MORA General Instructions [facility] VisitID: [id number] [place] [address] 46y, F Registration Date/Time: 12/22/2016 Recurrent LI after lamictal medication change. INSTRUCTIONS Drink plenty of fluids. Warnings: Further evaluation is necessary. SEDATIVE MEDICATION: You were given sedative medication during your visit. Do not drive or operate dangerous machinery. GENERAL WARNINGS: Return or contact your physician immediately if your condition worsens or changes unexpectedly, if not improving as expected, or if other problems arise. Your Current Medications: CONTINUE TAKING THE FOLLOWING MEDICATIONS: Lomotil Oral. Thyroid Hormone*. Wellbutrin Oral. zofran 4mg last dose 1500*. Prescription Medications: Soma 350 mg: Take 1 orally every 6 hours as needed for muscle spasm. Dispense twenty (20). No refills. Substitution is permissible. Oxycodone/APAP 5 mg/325 mg: take 1-2 tablets orally every 6 hours. Dispense twelve (12). No refill. Phenergan suppositories 25 mg: Insert 1 rectally every 4 to 6 hours as needed for nausea or vomiting. Dispense ten (10). No refills. Substitution is permissible. Follow-up: Follow up with your doctor Saturday in two days. Call for the next available appointment. Understanding of the discharge instructions verbalized by patient and family. ADDITIONAL INFORMATION Oxycodone Hydrochloride, Acetaminophen Oral tablet What is this medicine? ACETAMINOPHEN; OXYCODONE (a set a SARAH norma fen; ox i KOE done) is a pain reliever. It is used to treat mild to moderate pain. How should I use this medicine? Take this medicine by mouth with a full glass of water. Follow the directions on the prescription label. Take your medicine at regular intervals. Do not take your medicine more often than directed. Talk to your manager forensic regarding the use of this medicine in children. Special care may be needed. Patients over 65 years old may have a stronger reaction and need a smaller dose. What side effects may I notice from receiving this medicine? Side effects that you should report to your doctor or health career services director as soon as possible: allergic reactions like skin rash, itching or hives, swelling of the face, lips, or tongue breathing difficulties, wheezing confusion light headedness or fainting spells severe stomach pain yellowing of the skin or the whites of the eyes Side effects that usually do not require medical attention (report to your doctor or health career services director if they continue or are bothersome): dizziness drowsiness nausea vomiting What may interact with this medicine? alcohol antihistamines barbiturates like amobarbital, butalbital, butabarbital, methohexital, pentobarbital, phenobarbital, thiopental, and secobarbital benztropine drugs for bladder problems like solifenacin, trospium, oxybutynin, tolterodine, hyoscyamine, and methscopolamine drugs for breathing problems like ipratropium and tiotropium drugs for certain stomach or intestine problems like propantheline, homatropine methylbromide, glycopyrrolate, atropine, belladonna, and dicyclomine general anesthetics like etomidate, ketamine, nitrous oxide, propofol, desflurane, enflurane, halothane, isoflurane, and sevoflurane medicines for depression, anxiety, or psychotic disturbances medicines for sleep muscle relaxants naltrexone narcotic medicines (opiates) for pain phenothiazines like perphenazine, thioridazine, chlorpromazine, mesoridazine, fluphenazine, prochlorperazine, promazine, and trifluoperazine scopolamine tramadol trihexyphenidyl What if I miss a dose? If you miss a dose, take it as soon as you can. If it is almost time for your next dose, take only that dose. Do not take double or extra doses. Where should I keep my medicine? Keep out of the reach of children. This medicine can be abused. Keep your medicine in a safe place to protect it from theft. Do not share this medicine with anyone. Selling or giving away this medicine is dangerous and against the law. Store at room temperature between 20 and 25 degrees C (68 and 77 degrees F). Keep container tightly closed. Protect from light. This medicine may cause accidental overdose and if it is taken by other adults, children, or pets. Flush any unused medicine down the toilet to reduce the chance of harm. Do not use the medicine after the expiration date. What should I tell my health care provider before I take this medicine? They need to know if you have any of these conditions: brain tumor Crohn's disease, inflammatory bowel disease, or ulcerative colitis drink more than 3 alcohol containing drinks per day drug abuse or addiction head injury heart or circulation problems kidney disease or problems going to the bathroom liver disease lung disease, asthma, or breathing problems an unusual or allergic reaction to acetaminophen, oxycodone, other opioid analgesics, other medicines, foods, dyes, or preservatives or trying to get breast-feeding What should I watch for while using this medicine? Tell your doctor or health career services director if your pain does not go away, if it gets worse, or if you have new or a different type of pain. You may develop tolerance to the medicine. Tolerance means that you will need a higher dose of the medication for pain relief. Tolerance is normal and is expected if you take this medicine for a long time. Do not suddenly stop taking your medicine because you may develop a severe reaction. Your body becomes used to the medicine. This does NOT mean you are addicted. Addiction is a behavior related to getting and using a drug for a non-medical reason. If you have pain, you have a medical reason to take pain medicine. Your doctor will tell you how much medicine to take. If your doctor wants you to stop the medicine, the dose will be slowly lowered over time to avoid any side effects. You may get drowsy or dizzy. Do not drive, use machinery, or do anything that needs mental alertness until you know how this medicine affects you. Do not stand or sit up quickly, especially if you are an older patient. This reduces the risk of dizzy or fainting spells. Alcohol may interfere with the effect of this medicine. Avoid alcoholic drinks. There are different types of narcotic medicines (opiates) for pain. If you take more than one type at the same time, you may have more side effects. Give your health care provider a list of all medicines you use. Your doctor will tell you how much medicine to take. Do not take more medicine than directed. Call emergency for help if you have problems breathing. The medicine will cause constipation. Try to have a bowel movement at least every 2 to 3 days. If you do not have a bowel movement for 3 days, call your doctor or health career services director. Do not take Tylenol (acetaminophen) or medicines that have acetaminophen with this medicine. Too much acetaminophen can be very dangerous. Many nonprescription medicines contain acetaminophen. Always read the labels carefully to avoid taking more acetaminophen. You have been given the following additional information: Oxycodone Hydrochloride, Acetaminophen Oral tablet (Electronically signed by Ron Culver MD 12/26/2016 7:45)
--- NOTE | 2016-12-26 07:46 | ED DISCHARGE INSTRUCTIONS ---
Patient: ANSELMO MORA General Instructions [facility] VisitID: [id number] [place] [address] 46y, F Registration Date/Time: 12/22/2016 Recurrent LI after lamictal medication change. INSTRUCTIONS Drink plenty of fluids. Warnings: Further evaluation is necessary. SEDATIVE MEDICATION: You were given sedative medication during your visit. Do not drive or operate dangerous machinery. GENERAL WARNINGS: Return or contact your physician immediately if your condition worsens or changes unexpectedly, if not improving as expected, or if other problems arise. Your Current Medications: CONTINUE TAKING THE FOLLOWING MEDICATIONS: Lomotil Oral. Thyroid Hormone*. Wellbutrin Oral. zofran 4mg last dose 1500*. Prescription Medications: Soma 350 mg: Take 1 orally every 6 hours as needed for muscle spasm. Dispense twenty (20). No refills. Substitution is permissible. Oxycodone/APAP 5 mg/325 mg: take 1-2 tablets orally every 6 hours. Dispense twelve (12). No refill. Phenergan suppositories 25 mg: Insert 1 rectally every 4 to 6 hours as needed for nausea or vomiting. Dispense ten (10). No refills. Substitution is permissible. Follow-up: Follow up with your doctor Saturday in two days. Call for the next available appointment. Understanding of the discharge instructions verbalized by patient and family. ADDITIONAL INFORMATION Oxycodone Hydrochloride, Acetaminophen Oral tablet What is this medicine? ACETAMINOPHEN; OXYCODONE (a set a SARAH norma fen; ox i KOE done) is a pain reliever. It is used to treat mild to moderate pain. How should I use this medicine? Take this medicine by mouth with a full glass of water. Follow the directions on the prescription label. Take your medicine at regular intervals. Do not take your medicine more often than directed. Talk to your freezer person regarding the use of this medicine in children. Special care may be needed. Patients over 65 years old may have a stronger reaction and need a smaller dose. What side effects may I notice from receiving this medicine? Side effects that you should report to your doctor or health care assistant as soon as possible: allergic reactions like skin rash, itching or hives, swelling of the face, lips, or tongue breathing difficulties, wheezing confusion light headedness or fainting spells severe stomach pain yellowing of the skin or the whites of the eyes Side effects that usually do not require medical attention (report to your doctor or health care assistant if they continue or are bothersome): dizziness drowsiness nausea vomiting What may interact with this medicine? alcohol antihistamines barbiturates like amobarbital, butalbital, butabarbital, methohexital, pentobarbital, phenobarbital, thiopental, and secobarbital benztropine drugs for bladder problems like solifenacin, trospium, oxybutynin, tolterodine, hyoscyamine, and methscopolamine drugs for breathing problems like ipratropium and tiotropium drugs for certain stomach or intestine problems like propantheline, homatropine methylbromide, glycopyrrolate, atropine, belladonna, and dicyclomine general anesthetics like etomidate, ketamine, nitrous oxide, propofol, desflurane, enflurane, halothane, isoflurane, and sevoflurane medicines for depression, anxiety, or psychotic disturbances medicines for sleep muscle relaxants naltrexone narcotic medicines (opiates) for pain phenothiazines like perphenazine, thioridazine, chlorpromazine, mesoridazine, fluphenazine, prochlorperazine, promazine, and trifluoperazine scopolamine tramadol trihexyphenidyl What if I miss a dose? If you miss a dose, take it as soon as you can. If it is almost time for your next dose, take only that dose. Do not take double or extra doses. Where should I keep my medicine? Keep out of the reach of children. This medicine can be abused. Keep your medicine in a safe place to protect it from theft. Do not share this medicine with anyone. Selling or giving away this medicine is dangerous and against the law. Store at room temperature between 20 and 25 degrees C (68 and 77 degrees F). Keep container tightly closed. Protect from light. This medicine may cause accidental overdose and if it is taken by other adults, children, or pets. Flush any unused medicine down the toilet to reduce the chance of harm. Do not use the medicine after the expiration date. What should I tell my health care provider before I take this medicine? They need to know if you have any of these conditions: brain tumor Crohn's disease, inflammatory bowel disease, or ulcerative colitis drink more than 3 alcohol containing drinks per day drug abuse or addiction head injury heart or circulation problems kidney disease or problems going to the bathroom liver disease lung disease, asthma, or breathing problems an unusual or allergic reaction to acetaminophen, oxycodone, other opioid analgesics, other medicines, foods, dyes, or preservatives or trying to get breast-feeding What should I watch for while using this medicine? Tell your doctor or health care assistant if your pain does not go away, if it gets worse, or if you have new or a different type of pain. You may develop tolerance to the medicine. Tolerance means that you will need a higher dose of the medication for pain relief. Tolerance is normal and is expected if you take this medicine for a long time. Do not suddenly stop taking your medicine because you may develop a severe reaction. Your body becomes used to the medicine. This does NOT mean you are addicted. Addiction is a behavior related to getting and using a drug for a non-medical reason. If you have pain, you have a medical reason to take pain medicine. Your doctor will tell you how much medicine to take. If your doctor wants you to stop the medicine, the dose will be slowly lowered over time to avoid any side effects. You may get drowsy or dizzy. Do not drive, use machinery, or do anything that needs mental alertness until you know how this medicine affects you. Do not stand or sit up quickly, especially if you are an older patient. This reduces the risk of dizzy or fainting spells. Alcohol may interfere with the effect of this medicine. Avoid alcoholic drinks. There are different types of narcotic medicines (opiates) for pain. If you take more than one type at the same time, you may have more side effects. Give your health care provider a list of all medicines you use. Your doctor will tell you how much medicine to take. Do not take more medicine than directed. Call emergency for help if you have problems breathing. The medicine will cause constipation. Try to have a bowel movement at least every 2 to 3 days. If you do not have a bowel movement for 3 days, call your doctor or health care assistant. Do not take Tylenol (acetaminophen) or medicines that have acetaminophen with this medicine. Too much acetaminophen can be very dangerous. Many nonprescription medicines contain acetaminophen. Always read the labels carefully to avoid taking more acetaminophen. You have been given the following additional information: Oxycodone Hydrochloride, Acetaminophen Oral tablet (Electronically signed by Ron Culver MD 12/26/2016 7:45)
--- NOTE | 2016-12-26 07:46 | ED MAR SUMMARY ---
..... Medication Administration Record [facility] [address] [place] [address] Patient: ANSELMO MORA Visit ID: [id number] 46y, F Weight: 97.5 kg Height/Length: 67 in BMI: 33.7 ALLERGIES: Lamictal, Sulfa Antibiotics Given 20:20 12/22/2016 Raya Salgado R.N. Medication Administered: ZOFRAN ODT [PO] (ONDANSETRON), Dose: 4 mg Oral Disintegrating Tablets PO. Medication Ordered: Zofran ODT PO 4 mg (NOW). Given 20:50 12/22/2016 Anu Olivier R.N. Medication Administered: ATIVAN [IM] (LORAZEPAM), Dose: 1 mg IM. Medication Ordered: Ativan IM 1 mg (NOW). Given 20:50 12/22/2016 Anu Olivier R.N. Medication Administered: DILAUDID [IM] (HYDROMORPHONE HCL PF), Dose: 1 mg IM. Medication Ordered: Dilaudid IM 1 mg (NOW). Given 20:50 12/22/2016 Anu Olivier R.N. Medication Administered: PHENERGAN [IM] (PROMETHAZINE HCL), Dose: 25 mg IM. Medication Ordered: Phenergan IM 25 mg (NOW).
--- NOTE | 2016-12-26 07:46 | ED MED RECONCILIATION SUMMARY ---
Patient: ANSELMO MORA Medication Reconciliation Report [facility] VisitID: [id number] [address] [place] [address] 46y, F Registration Date/Time: 12/22/2016 Weight: 97.5 kg Height/Length: 67 in. BMI: 33.7 ALLERGIES: Lamictal, Sulfa Antibiotics The patient's Home Medications are listed below: CONTINUE TAKING THE FOLLOWING MEDICATIONS: Lomotil Oral Thyroid Hormone Wellbutrin Oral zofran 4mg last dose 1500 The source(s) of the original Home Medication information: Not obtained. The following Medications were given to the patient in the Emergency Department: Zofran ODT [PO] PO 4 mg, administered: 12/22/2016 8:20:00 PM Ativan [IM] IM 1 mg, administered: 12/22/2016 8:50:00 PM Dilaudid [IM] IM 1 mg, administered: 12/22/2016 8:50:00 PM Phenergan [IM] IM 25 mg, administered: 12/22/2016 8:50:00 PM The following Medications were prescribed to the patient: Soma 350 mg: Take 1 orally every 6 hours as needed for muscle spasm. Dispense twenty (20). No refills. Substitution is permissible. -- Ron Culver MD Oxycodone/APAP 5 mg/325 mg: take 1-2 tablets orally every 6 hours. Dispense twelve (12). No refill. -- Ron Culver MD Phenergan suppositories 25 mg: Insert 1 rectally every 4 to 6 hours as needed for nausea or vomiting. Dispense ten (10). No refills. Substitution is permissible. -- Ron Culver MD
--- NOTE | 2016-12-26 07:46 | ED MED RECONCILIATION SUMMARY ---
Patient: ANSELMO MORA Medication Reconciliation Report [facility] VisitID: [id number] [address] [place] [address] 46y, F Registration Date/Time: 12/22/2016 Weight: 97.5 kg Height/Length: 67 in. BMI: 33.7 ALLERGIES: Lamictal, Sulfa Antibiotics The patient's Home Medications are listed below: CONTINUE TAKING THE FOLLOWING MEDICATIONS: Lomotil Oral Thyroid Hormone Wellbutrin Oral zofran 4mg last dose 1500 The source(s) of the original Home Medication information: Not obtained. The following Medications were given to the patient in the Emergency Department: Zofran ODT [PO] PO 4 mg, administered: 12/22/2016 8:20:00 PM Ativan [IM] IM 1 mg, administered: 12/22/2016 8:50:00 PM Dilaudid [IM] IM 1 mg, administered: 12/22/2016 8:50:00 PM Phenergan [IM] IM 25 mg, administered: 12/22/2016 8:50:00 PM The following Medications were prescribed to the patient: Soma 350 mg: Take 1 orally every 6 hours as needed for muscle spasm. Dispense twenty (20). No refills. Substitution is permissible. -- Ron Culver MD Oxycodone/APAP 5 mg/325 mg: take 1-2 tablets orally every 6 hours. Dispense twelve (12). No refill. -- Ron Culver MD Phenergan suppositories 25 mg: Insert 1 rectally every 4 to 6 hours as needed for nausea or vomiting. Dispense ten (10). No refills. Substitution is permissible. -- Ron Culver MD
--- NOTE | 2016-12-26 07:46 | ED MAR SUMMARY ---
..... Medication Administration Record [facility] [address] [address] Patient: ANSELMO MORA Visit ID: [id number] 46y, F Weight: 97.5 kg Height/Length: 67 in BMI: 33.7 ALLERGIES: Lamictal, Sulfa Antibiotics Given 20:20 12/22/2016 Raya Salgado R.N. Medication Administered: ZOFRAN ODT [PO] (ONDANSETRON), Dose: 4 mg Oral Disintegrating Tablets PO. Medication Ordered: Zofran ODT PO 4 mg (NOW). Given 20:50 12/22/2016 Anu Olivier R.N. Medication Administered: ATIVAN [IM] (LORAZEPAM), Dose: 1 mg IM. Medication Ordered: Ativan IM 1 mg (NOW). Given 20:50 12/22/2016 Anu Olivier R.N. Medication Administered: DILAUDID [IM] (HYDROMORPHONE HCL PF), Dose: 1 mg IM. Medication Ordered: Dilaudid IM 1 mg (NOW). Given 20:50 12/22/2016 Anu Olivier R.N. Medication Administered: PHENERGAN [IM] (PROMETHAZINE HCL), Dose: 25 mg IM. Medication Ordered: Phenergan IM 25 mg (NOW).
== END 2016-12-22 23:47 | disposition home or self-care (01) ==
LOC: ED SRH 20:08
DX: G44.011 Episodic cluster headache, intractable (principal); I10 Essential (primary) hypertension; E07.9 Disorder of thyroid, unspecified; Z88.2 Allergy status to sulfonamides; Z88.8 Allergy status to other drugs, medicaments and biological substances; Z79.899 Other long term (current) drug therapy

== ENCOUNTER → 2016-12-22 | Emergency (ER) | payer OTHER ==
--- NOTE | 2016-12-22 23:06 | ED CLINICAL REPORT ---
Clinical Report - Physicians/Mid Levels [facility] [address] [place] [address] 12/22/2016 22:34 Patient: ANSELMO MORA Time Seen: 22:46; upon arrival, initial patient contact, initial documentation, patient care assumed. Arrived- By private vehicle. Historian- patient and spouse. RETURN VISIT: recently seen in this ED by another ED physician. Seen now for the same problem as before. HISTORY OF PRESENT ILLNESS Chief Complaint: HEADACHE and MIGRAINE HEADACHE. This started about 10 days ago. It is described as similar to previous headaches and "pain". No neck pain. Not located in the facial region. At its maximum, severity described as severe. When seen in the E.D., severity described as severe. Modifying factors: worsened by bright light and general movement; relieved by nothing. The patient has had photophobia and nausea. She has had severe vomiting. The vomiting has occurred numerous times and has been bilious. No feculent emesis, blood-tinged emesis, coffee-grounds emesis, frankly bloody emesis or unusually dark emesis. No blurred vision, numbness or weakness. No recent travel. Similar symptoms previously: Chronically, as bad. Recent medical care: The patient was seen recently at this facility in the emergency department. ( pt has been to office, er every day since last for headache, lp done, labs done, all normal was discharged from here approx 1-2 hrs ago, on way home, started vomiting so came right back, rx not filled, nothing taken yet). REVIEW OF SYSTEMS No fever, sinus pressure or head injury. All systems otherwise negative, except as recorded above. PAST HISTORY See nurses notes. PROBLEMS: Bipolar Disorder. Abdominal Injury. Chest Pain. Hypertension. Thyroid Disease. Depression. --20:23 Raya Salgado R.N. Migraine Headache [RuleOut]. --20:23 Raya Salgado R.N. ADDITIONAL SURGERIES: Hysterectomy. Oblation. Tonsillectomy. Tubal Ligation. --20:23 Damian, Raya, R.N. SOCIAL HISTORY Never smoker. Occasional alcohol use. No drug use. No recent travel. Is a local resident. FAMILY HISTORY Negative. ADDITIONAL NOTES The nursing notes have been reviewed with agreement regarding the chief complaint, HPI, ROS, PMH and patient medications and allergies. PHYSICAL EXAM Vital Signs: 12/22/2016 22:40 BP: 175/115. HR: 86. RR: 18. O2 saturation: 100%. Temp: 98.3 F. Pain level now: 08/27. Have been reviewed as abnormal and appear to be correct. Hypertensive. Heart rate normal. Respiratory rate normal. Temperature normal. Oxygen saturation normal. Appearance: Alert. No acute distress. Eyes: Pupils equal, round and reactive to light. Eyes normal inspection. ENT: Ears normal. Nose normal. Pharynx normal. Neck: Normal inspection. Neck supple. CVS: Normal heart rate and rhythm. Heart sounds normal. Pulses normal. Respiratory: No respiratory distress. Breath sounds normal. Back: Normal inspection. Skin: Skin warm and dry. Normal skin color. No rash. Normal skin turgor. Extremities: Extremities exhibit normal ROM. No lower extremity edema. Neuro: Oriented X 3. Alert. Mood/affect normal. Speech normal. Cranial nerves normal (as tested). No cerebellar findings. No motor deficit. No sensory deficit. PROGRESS AND PROCEDURES Patient and spouse counseled in person regarding the patient's stable condition and diagnosis. 23:06. Differential Diagnosis: I considered migraine, cluster headache, ischemic stroke, subarachnoid hemorrhage, intracranial bleed, vascular malformation, cerebral aneurysm, vascular dissection, vasculitis, temporal arteritis, encephalitis, brain abscess, subdural empyema, influenza, viral syndrome, carbon monoxide exposure, analgesic abuse, hypoglycemia and trigeminal neuralgia as a possible cause of headache in this patient. This is a partial list of diagnoses considered. Above considerations are based on history and physical exam. Differential diagnosis was discussed with patient and patient's spouse. Disposition: Discharged home in good and improved condition (23:06). Condition: good and stable. CLINICAL IMPRESSION Episodic, poorly controlled cluster and periodic headache syndrome. INSTRUCTIONS (need to get prescriptions filled and take as directed and discussed). Warnings: GENERAL WARNINGS: Return or contact your physician immediately if your condition worsens or changes unexpectedly, if not improving as expected, or if other problems arise. SPECIFICALLY, return if you develop fever, vomiting, numbness, weakness, difficulty thinking, visual disturbances, fainting or extreme fatigue. Follow-up: Follow up with your doctor in about three days as needed. Call for an appointment. Summary of care provided to patient and family. Understanding of the discharge instructions verbalized by patient. (Electronically signed by Christen Anthony A.R.N.P. 12/23/2016 14:14)
--- NOTE | 2016-12-22 23:06 | ED NURSING NOTES ---
Clinical Report - Nurses [facility] [place] [address] [address] 12/22/2016 22:34 Patient: ANSELMO MORA TRIAGE Triage time 22:40 Dec 22 2016. Acuity: LEVEL 4. Chief Complaint: (nausea, headache). 22:30 12/22/16. --22:51 Anu Olivier R.N. 22:40 12/22/16. BP: 175/115. HR: 86. RR: 18. O2 saturation: 100%. Temp: 98.3 F. Pain level now: 08/27. --22:51 Anu Olivier R.N. Weight: 97.5 kg. Height/Length: 67 inches. BMI: 33.7. --22:39 Anu Olivier R.N. Medications Lomotil Oral. Thyroid Hormone. Wellbutrin Oral. zofran 4mg last dose 1500. --22:47 Anu Olivier R.N. Medication/allergy information source: the patient. --22:51 Anu Olivier R.N. Allergies Lamictal. --22:47 Anu Olivier R.N. Sulfa Antibiotics. --22:47 Anu Olivier R.N. History Arrived by private vehicle. Historian: patient. Accompanied by family. ( this has been ongoing problem for nearly 6 days. This is her 7th ED visit for same symptoms, 3rd visit today. She was just discharged here within last 2 hours. RX for percocet and phenergan were given. Pt did drop of RX at pharmacy but states couldnt wait for meds. Symtoms got worse. Patient is coughing, not vomiting.). No fever, weakness, cough, difficulty breathing or skin rash. Denies muscle aches. SOCIAL HX: Never smoker. Occasional alcohol use. No drug use. No infectious disease exposure. ABUSE ASSESSMENT: No report of abuse. SELF HARM ASSESSMENT: A self harm assessment was performed. The patient answered "no" to the question "Have you recently felt down, depressed, or hopeless?", "Have you noticed less interest or pleasure in doing things?", "Do you have thoughts of harming or killing yourself?", "Are you here because you tried to hurt yourself?", "Have you ever tried to hurt yourself before today?", "Have you recently had thoughts about harming or killing others?" and "Do you have any dangerous items in your possession?". --22:51 Anu Olivier R.N. ADDITIONAL SURGERIES: Hysterectomy. Oblation. Tonsillectomy. Tubal Ligation. --22:47 Anu Olivier R.N. Interventions ID band on patient. --22:51 Anu Olivier R.N. PHYSICAL ASSESSMENT 22:55 12/22/16. Ambulatory to room. GENERAL / NEURO / PSYCH: Alert. Oriented X 4. HEENT: Mucous membranes are pink. RESPIRATORY: Breath sounds within normal limits. CVS: Pulses within normal limits. GI / : Abdomen nontender. SKIN: Skin intact. Skin is warm and dry. Normal skin turgor. --23:16 Anu Olivier R.N. NURSING PROGRESS NOTES 22:45 12/22/16. The initial plan of care for this patient includes an assessment with efforts to address impairment of the gastrointestinal system. This plan of care was discussed with the patient. Portable chest x-ray. Patient identifiers checked. Call light placed in reach. Side rails up x 1. Bed placed in lowest position. Brakes of bed on. Patient ready for evaluation. --23:16 Aun Olivier R.N. 23:10 12/22/2016 Benadryl (DiphenhydrAMINE HCl) IM 50 mg given. Given in the right gluteus itz. Allergies verified, confirmed 5 rights and sedative warning given to the patient and patient's family. --23:14 Anu Olivier R.N. 23:10 12/22/2016 Reglan (Metoclopramide HCl) IM 10 mg given. Given in the left gluteus itz. Allergies verified and confirmed 5 rights. --23:14 Anu Olivier R.N. DISPOSITION / DISCHARGE 23:46 12/22/16. Departure time: 23:46 Dec 22 2016. Condition at departure: improved and stable. The goals identified in the patient's plan of care were met. No learning barriers present. Patient and spouse verbalized understanding. Written instructions provided in Chilean. The patient was discharged home and accompanied by spouse. She left the Emergency Department ambulatory and via private vehicle. Spouse driving. --23:47 Anu Olivier R.N. 23:46 12/22/16. BP: 176/80. HR: 80. RR: 16. O2 saturation: 100%. Temp: 98.5 F. Pain level now 0/10. --23:47 Anu Olivier R.N. Locked/Released at 12/22/2016 23:47 by Anu Olivier R.N.
--- NOTE | 2016-12-22 23:06 | ED ORDER SUMMARY ---
..... Patient: ANSELMO MORA OrderSheet [facility] VisitID: [id number] [address] [place] [address] 46y, F Registration Date/Time: 12/22/2016 ORDER SHEET Weight: 97.5 kg Allergies: Lamictal, Sulfa Antibiotics GENERAL ORDERS: MEDICATION ORDERS: Benadryl IM 50 mg (NOW) (23:01 12/22/2016 HBivens A.R.N.P.) (23:14 EInderbitzen R.N.) - (reglan 10mg im stat) (23:01 12/22/2016 HBivens A.R.N.P.) (23:14 EInderbitzen R.N.) IV FLUIDS: ORDER SHEET NOTES: [Electronically signed by Anu Olivier R.N. (23:47 12/22/2016)] [Electronically signed by Christen Anthony A.R.N.P. (14:14 12/23/2016)] [Electronically locked/signed by Anu Olivier R.N. (23:47 12/22/2016)]
--- NOTE | 2016-12-22 23:06 | ED ORDER SUMMARY ---
..... Patient: ANSELMO MORA OrderSheet [facility] VisitID: [id number] [address] [place] [address] 46y, F Registration Date/Time: 12/22/2016 ORDER SHEET Weight: 97.5 kg Allergies: Lamictal, Sulfa Antibiotics GENERAL ORDERS: MEDICATION ORDERS: Benadryl IM 50 mg (NOW) (23:01 12/22/2016 HBivens A.R.N.P.) (23:14 EInderbitzen R.N.) - (reglan 10mg im stat) (23:01 12/22/2016 HBivens A.R.N.P.) (23:14 EInderbitzen R.N.) IV FLUIDS: ORDER SHEET NOTES: [Electronically signed by Anu Olivier R.N. (23:47 12/22/2016)] [Electronically signed by Christen Anthony A.R.N.P. (14:14 12/23/2016)] [Electronically locked/signed by Anu Olivier R.N. (23:47 12/22/2016)]
--- NOTE | 2016-12-23 14:14 | ED DISCHARGE INSTRUCTIONS ---
Patient: ANSELMO MORA General Instructions [facility] VisitID: [id number] [place] [address] 46y, F Registration Date/Time: 12/22/2016 Episodic, poorly controlled cluster and periodic headache syndrome. INSTRUCTIONS (need to get prescriptions filled and take as directed and discussed). Warnings: GENERAL WARNINGS: Return or contact your physician immediately if your condition worsens or changes unexpectedly, if not improving as expected, or if other problems arise. SPECIFICALLY, return if you develop fever, vomiting, numbness, weakness, difficulty thinking, visual disturbances, fainting or extreme fatigue. Follow-up: Follow up with your doctor in about three days as needed. Call for an appointment. Summary of care provided to patient and family. Understanding of the discharge instructions verbalized by patient. ADDITIONAL INFORMATION Headache Cluster A cluster headache is different from migraine or tension headaches. A cluster headache starts suddenly without any warning sign. The pain can become severe within minutes. The headache is often brief, usually lasting only 15 minutes; but it can continue for several hours. The pain is centered around one eye. There may be tears coming from that eye. That eyelid may become droopy with redness and swelling around the eye. A stuffy or runny nose on the affected side is also common. There may be several headaches in one 24-hour period. These may return at the same time of day during the cluster period. A cluster headache ends as suddenly as it began. It often leaves you feeling exhausted for some time afterwards. Cluster headaches often occur in the nighttime, during certain times of the year that is unique to you. A cluster period ranges from a few weeks up to a few months. Then, they may not recur again for months or years. Possible triggers include alcohol and cigarette smoking. Even one drink can trigger a headache during the cluster period. Other potential triggers include interrupted sleep patterns. Certain medicines such as nitroglycerin can also cause a cluster headache. If your headaches are brief (15 minutes or less), kxfa-gef-fmomowc medicines wont help,since it takes 20-30 minutes for these medicines to start working. Prescription medicines by injection or nasal spray can stop a headache (called abortive treatment). Preventive treatments (such as steroids, and anti-seizure medicines) can help reduce the number of headaches during a cluster period. Use of oxygen or a nerve stimulator may shorten each attack and reduce the severity. In some people with frequent and severe symptoms, surgery may be used to disrupt part of the local nerve conducting the pain signals.These preventive treatments are usually provided by specialists such as a neurologist or neurosurgeon. Home Care: If you were given pain medicine for this headache, do not drive yourself home. Arrange for a ride, instead. When you get home, try to sleep. You should feel much better when you wake up. If your doctor has prescribed preventive medicines, take them as directed. If abortive medicines were prescribed be sure to carry these with you to take at first sign of the headache. Stick to a regular sleep schedule. Avoid afternoon naps during a cluster period. If you have sleep apnea, talk to your doctor about treatment for this condition since this greatly interferes with sleep patterns. Limit exposure to fumes from gasoline, oil-based paints and the like. Avoid drinking alcohol and smoking during a cluster period. Be cautious when traveling to high altitudes. The reduced oxygen may trigger a headache. Use sunglasses to avoid glare and bright lights. Keep a headache journal. Record the date and time of each headache. Describe the quality of the pain (severity, location, how long it lasts), your response to any medicines to control the pain, possible triggers (something you ate or did just before the attack). Share this information with your doctor to help him design the best treatment plan for you. Talking to a counselor, therapist or support group may help you cope with the effects of cluster headache on your lifestyle. Follow Up with your doctor or as advised by our staff. [NOTE: If you had a CT scan or MRI, this will be reviewed by a specialist. You will be notified of any new findings that may affect your care.] Get Prompt Medical Attention if any of the following occur: Sudden, severe headache, worse than any you have had before Headache with a fainting spell Unexplained fever greater than 100.0 F (37.8 C) Stiff neck or rash Weakness of an arm or leg or one side of the face Difficulty with speech or vision Headache [Unspecified] The cause of your headache today is not clear, but it does not appear to be the sign of any serious illness. Under stress, some people tense the muscles of their shoulder, neck and scalp without knowing it. If this condition lasts long enough, a TENSION HEADACHE can occur. A MIGRAINE HEADACHE is caused by changes in blood flow to the brain. A migraine attack may be triggered by emotional stress, hormone changes during the menstrual cycle, oral contraceptives, alcohol use, certain foods containing tyramine, eye strain, weather changes, missing meals, lack of sleep or oversleeping. Other causes of headache include a viral illness with high fever, head injury with concussion, sinus, ear or throat infection, dental pain and TMJ (jaw joint) pain. More serious but less common causes of headache include stroke, brain hemorrhage, brain tumor, meningitis and encephalitis. Home Care: If you were given pain medicine for this headache, do not drive yourself home. Arrange for a ride, instead. When you get home, try to sleep. You should feel much better when you wake up. Apply heat to the back of your neck to relieve neck muscle spasm. Migraine headaches may respond best to an ice pack on the forehead or at the base of the skull. If you are having nausea or vomiting, follow a light diet until your headache is relieved. If you have a migraine type headache, use sunglasses when in the daylight or around bright indoor lighting until symptoms improve. Bright glaring light can worsen this kind of headache. Follow Up with your doctor if the headache is not better within the next 24 hours. If you have frequent headaches you should discuss a treatment plan with your primary care doctor. By being aware of the earliest signs of headache, and starting treatment right away, you may be able to stop the pain yourself. Get Prompt Medical Attention if any of the following occur: Worsening of your head pain or no improvement within 24 hours Repeated vomiting (unable to keep liquids down) Fever of 100.4F (38C) or higher, or as directed by your healthcare provider Stiff neck Extreme drowsiness, confusion or fainting Dizziness, vertigo (dizziness with spinning sensation) Weakness of an arm or leg or one side of the face Difficulty with speech or vision You have been given the following additional information: Headache, Cluster Headache, Unspecified (Electronically signed by Christen Anthony A.R.N.P. 12/23/2016 14:14)
--- NOTE | 2016-12-23 14:14 | ED MAR SUMMARY ---
..... Medication Administration Record [facility] [address] [place] [address] Patient: ANSELMO MORA Visit ID: [id number] 46y, F Weight: 97.5 kg Height/Length: 67 in BMI: 33.7 ALLERGIES: Sulfa Antibiotics, Lamictal Given 23:10 12/22/2016 Anu Olivier R.N. Medication Administered: BENADRYL [IM] (DIPHENHYDRAMINE HCL), Dose: 50 mg IM. Medication Ordered: Benadryl IM 50 mg (NOW). Given 23:12/22/2016 Anu Olivier R.N. Medication Administered: REGLAN [IM] (METOCLOPRAMIDE HCL), Dose: 10 mg IM. Medication Ordered: - (reglan 10mg im stat).
--- NOTE | 2016-12-23 14:14 | ED MED RECONCILIATION SUMMARY ---
Patient: ALLA MORAMARTA Nasim Medication Reconciliation Report [facility] VisitID: [id number] [address] [place] [address] 46y, F Registration Date/Time: 12/22/2016 Weight: 97.5 kg Height/Length: 67 in. BMI: 33.7 ALLERGIES: Lamictal, Sulfa Antibiotics The patient's Home Medications are listed below: THE FOLLOWING MEDICATIONS NEED TO BE RECONCILED: Lomotil Oral Thyroid Hormone Wellbutrin Oral zofran 4mg last dose 1500 The source(s) of the original Home Medication information: patient The following Medications were given to the patient in the Emergency Department: Benadryl [IM] IM 50 mg, administered: 12/22/2016 11:10:00 PM Reglan [IM] IM 10 mg, administered: 12/22/2016 11:10:00 PM The following Medications were prescribed to the patient: None.
--- NOTE | 2016-12-23 14:14 | ED MED RECONCILIATION SUMMARY ---
Patient: ALLA MORAMARTA aNsim Medication Reconciliation Report [facility] VisitID: [id number] [address] [place] [address] 46y, F Registration Date/Time: 12/22/2016 Weight: 97.5 kg Height/Length: 67 in. BMI: 33.7 ALLERGIES: Lamictal, Sulfa Antibiotics The patient's Home Medications are listed below: THE FOLLOWING MEDICATIONS NEED TO BE RECONCILED: Lomotil Oral Thyroid Hormone Wellbutrin Oral zofran 4mg last dose 1500 The source(s) of the original Home Medication information: patient The following Medications were given to the patient in the Emergency Department: Benadryl [IM] IM 50 mg, administered: 12/22/2016 11:10:00 PM Reglan [IM] IM 10 mg, administered: 12/22/2016 11:10:00 PM The following Medications were prescribed to the patient: None.
--- NOTE | 2016-12-23 14:14 | ED MAR SUMMARY ---
..... Medication Administration Record [facility] [address] [place] [address] Patient: ANSELMO MORA Visit ID: [id number] 46y, F Weight: 97.5 kg Height/Length: 67 in BMI: 33.7 ALLERGIES: Sulfa Antibiotics, Lamictal Given 23:10 12/22/2016 Anu Olivier R.N. Medication Administered: BENADRYL [IM] (DIPHENHYDRAMINE HCL), Dose: 50 mg IM. Medication Ordered: Benadryl IM 50 mg (NOW). Given 23:12/22/2016 Anu Olivier R.N. Medication Administered: REGLAN [IM] (METOCLOPRAMIDE HCL), Dose: 10 mg IM. Medication Ordered: - (reglan 10mg im stat).
== END ==
LOC: ED SRH 22:33
DX: G44.019 Episodic cluster headache, not intractable (principal); I10 Essential (primary) hypertension; E07.9 Disorder of thyroid, unspecified; Z88.2 Allergy status to sulfonamides; Z88.8 Allergy status to other drugs, medicaments and biological substances